=== PATIENT | male | born 1945 | race Caucasian/White ===

== ENCOUNTER 2017-07-09 09:27 | Inpatient (IN) | payer OTHER ==
[~2017-07-09] VITALS: Ht 182.9 cm; Wt 116.0 kg
[2017-07-09] VITALS (18 sets, daily range): BP systolic 135–189; BP diastolic 68–96
[2017-07-09 09:47] LABS: MCH 29.2 PG (29.0-34.0); MCHC 30.6 G/DL (30.0-36.0); MCV 95.4 FL (86-99); MEAN PLAT.VOLUME 10.7 uM^3 (9.0-12.4); PLATELET COUNT 199 K/uL (156-360); RBC DIS.WIDTH-CV 13.1 % (11.8-14.6); RBC DIS.WIDTH-SD 45.1 % (39-53); RED BLOOD COUNT 3.25 M/uL (4.00-5.50); WHITE BLOOD COUNT 8.7 K/uL (4.1-10.2)
[2017-07-09 09:53] LABS: INTER. NORMALIZED RATIO 1.1; PROTHROMBIN TIME 11.7 SEC (10.2-12.9)
[2017-07-09 09:56] LABS: CHLORIDE 103 mEq/L (99-109); MAGNESIUM 1.9 mg/dL (1.3-2.7); POTASSIUM 4.7 mEq/L (3.7-5.4); PTT 30.4 SEC (25-37); SODIUM 144 mEq/L (136-147)
[2017-07-09 09:58] LABS: GLUCOSE 178 mg/dL (70-99)
[2017-07-09 09:59] LABS: ANION GAP 20 MEQ/L (2-14)
[2017-07-09 10:00] LABS: TOTAL BILIRUBIN 0.3 mg/dL (0.0-1.0)
[2017-07-09 10:02] LABS: ALKALINE PHOSPHATASE 66 IU/L (3-129); GFR ESTIMATE (CALCULATED) 20 mL/min/
[2017-07-09 10:03] LABS: UREA NITROGEN (BUN) 37 mg/dL (9-23)
[2017-07-09 10:08] LABS: TROP-I INTERPRETATION NEGATIVE; TROPONIN-I 0.04 ng/mL (0.0-0.30)
[2017-07-09 11:08] LABS: BICARBONATE 27.4 mEq/L (22-26); CARBOXY HGB 0.9 % (0-5); METHEMOGLOBIN 0.8 % (0-1.5); PCO2 67 mm Hg (35-45); PO2 232 mm Hg (80-100)
[2017-07-09 11:08] LABS: BAND NEUTROPHILS 4.4 % (0-8.0); EOSINOPHIL ABS CT 0.2; EOSINOPHILS 2.6 % (0-5.0); INSTRUMENT ABS NEUTROPHIL CT 5.1 K/uL; LYMPHOCYTES 22.8 % (15.0-45.0); METAMYELOCYTES 3.5 %; MYELOCYTES 0.9 %; OVALOCYTES 1+; PLAT.SUFFICIENCY ADEQUATE; POIKILOCYTOSIS 1+; SEG.NEUTROPHILS 64.9 % (46.0-76.0)
[2017-07-09 11:09] LABS: COMMENTS - BLOOD GASES +C; DEVICE 840; FI02 80 %; MECHANICAL RATE 14 resp/min; MODE AC; PEEP 5 CM/H20; SITE RR +A; TIDAL VOLUME 450 ML; TOTAL RESP RATE 18 resp/min; pH 7.22 (7.35-7.45)
[2017-07-09] MEDS ORDERED: PROVENTIL HFA6.7 GM IH (11:35)
[2017-07-09] MEDS ORDERED: PULMICORT FLE180 MCG IH (11:36)
[2017-07-09] MEDS ORDERED: AMARYL1 MG PO (11:37)
[2017-07-09] MEDS ORDERED: LOPRESSOR50 MG PO (11:37)
[2017-07-09] MEDS ORDERED: ASCORBIC ACID500 M1 PO (11:37)
[2017-07-09] MEDS ORDERED: LASIX20 MG PO (11:38)
[2017-07-09] MEDS ORDERED: DUREZOL 0.100 DROP/5 BOTH EYES (11:39)
[2017-07-09] MEDS ORDERED: LO-DOSE ASPIRIN81 M2 PO (11:39)
[2017-07-09] MEDS ORDERED: ILEVRO1.7 ML BOTH EYES (11:40)
[2017-07-09] MEDS ORDERED: BESIVANCE5 ML BOTH EYES (11:40)
[2017-07-09] MEDS ORDERED: CARDURA2 M1 PO (11:41)
[2017-07-09 12:04] LABS: ADD MIUA? YES; BILIRUBIN NEGATIVE; BLOOD NEGATIVE; COLOR YELLOW ((YELLOW)); GLUCOSE (STRIP) 150; KETONES 5; LEUKOCYTES NEGATIVE; NITRITE NEGATIVE; PROTEIN (STRIP) >=500; SPECIFIC GRAVITY 1.019 (1.000-1.030); UROBILINOGEN 0.2 MG/DL (0.2-1.0)
[2017-07-09 12:27] LABS: BACTERIA NONE SEEN /HPF; EPITHELIAL CELLS NONE SEEN /HPF; HYALINE CASTS 0-5 /LPF; MUCUS NONE SEEN /LPF; RED BLOOD CELLS 0-5 /HPF (0-5); WHITE BLOOD CELLS 0-5 /HPF (0-5)
[2017-07-09 13:25] LABS: BASE EXCESS 2.3 mEq/L (-3 to +3); BICARBONATE 30.1 mEq/L (22-26); CARBOXY HGB 1.1 % (0-5); METHEMOGLOBIN 1.5 % (0-1.5); PCO2 64 mm Hg (35-45)
[2017-07-09 13:26] LABS: PO2 56 mm Hg (80-100); SITE RR; pH 7.28 (7.35-7.45)
[2017-07-09 13:27] LABS: COMMENTS - BLOOD GASES C+; DEVICE VENT; FI02 40 %; INSPIRATION TIME 0.9 seconds; MECHANICAL RATE 18 resp/min; MODE AC VC+; PEEP 5 CM/H20; TIDAL VOLUME 450 ML; TOTAL RESP RATE 20 resp/min
[2017-07-09 14:09] LABS: METH RESISTANT S AUREUS PCR NEGATIVE (NEGATIVE)
[2017-07-09 14:10] LABS: PROBE CHECK PASS; SPECIMEN PROCESSING CONTROL PASS
[2017-07-09 14:27] LABS: INTER. NORMALIZED RATIO 1.1; PROTHROMBIN TIME 11.8 SEC (10.2-12.9)
[2017-07-09 14:30] LABS: PTT 23.3 SEC (25-37)
[2017-07-09 16:03] LABS: BASE EXCESS -2.3 mEq/L (-3 to +3); BICARBONATE 26.6 mEq/L (22-26); CARBOXY HGB 1.4 % (0-5); METHEMOGLOBIN 1.3 % (0-1.5); PCO2 68 mm Hg (35-45)
[2017-07-09 16:04] LABS: COMMENTS - BLOOD GASES C+; DEVICE VENT; FI02 50 %; MECHANICAL RATE 22 resp/min; MODE ACVC+; PEEP 5 CM/H20; PO2 77 mm Hg (80-100); SITE RR; TOTAL RESP RATE 23 resp/min
[2017-07-09 17:35] LABS: EOSINOPHIL (%) 0 % (0-5); HEMATOCRIT 31.4 % (38.0-50.0); IMMATURE GRANULOCYTE (%) 0.6 % (0.0-0.7); IMMATURE GRANULOCYTE COUNT 0.1 K/uL; LYMPHOCYTE COUNT 0.3 K/uL (1.0-2.8); MCH 29.7 PG (29.0-34.0); MCHC 31.2 G/DL (30.0-36.0); MCV 95.2 FL (86-99); MEAN PLAT.VOLUME 10.5 uM^3 (9.0-12.4); MONOCYTE (%) 4.3 % (3-12); MONOCYTE COUNT 0.5 K/uL (0-0.8); NEUTROPHIL (%) 92.9 % (45-76); PLATELET COUNT 182 K/uL (156-360); RBC DIS.WIDTH-CV 13.4 % (11.8-14.6); RBC DIS.WIDTH-SD 46.4 % (39-53); WHITE BLOOD COUNT 11.8 K/uL (4.1-10.2)
[2017-07-09 17:52] LABS: ANION GAP 11 MEQ/L (2-14); CHLORIDE 105 MEQ/L (99-109); MAGNESIUM 1.7 mg/dl (1.3-2.7); POTASSIUM 5.3 MEQ/L (3.7-5.4); SAMPLE HEMOLYSIS CHECK 0; SAMPLE ICTERIC CHECK 0; SAMPLE LIPEMIA CHECK 0; SODIUM 141 MEQ/L (136-147)
[2017-07-09 17:58] LABS: GFR ESTIMATE (CALCULATED) 20 mL/min/; GLUCOSE 173 mg/dL (70-99); UREA NITROGEN (BUN) 49 mg/dL (9-23)
[2017-07-09 18:01] LABS: TROP-I INTERPRETATION NEGATIVE; TROPONIN-I 0.19 ng/mL (0.0-0.30)
[2017-07-09 18:02] LABS: TROP-I INTERPRETATION NEGATIVE; TROPONIN-I 0.18 ng/mL (0.0-0.30)
[2017-07-09 18:07] LABS: UR CREATININE CONCENTRATION 184.1 MG/DL
[2017-07-09 18:15] LABS: POINT-OF-CARE METER ID UU14314082
[2017-07-09 18:20] LABS: CREATINE KINASE 441 IU/L (1-294)
[2017-07-09 19:10] LABS: BASE EXCESS -5.4 mEq/L (-3 to +3); BICARBONATE 25.1 mEq/L (22-26); CARBOXY HGB 0.8 % (0-5); METHEMOGLOBIN 1.4 % (0-1.5); PO2 81 mm Hg (80-100)
[2017-07-09 19:11] LABS: COMMENTS - BLOOD GASES A+C+; DEVICE VENT; FI02 50 %; INSPIRATION TIME 0.9 seconds; MECHANICAL RATE 26 resp/min; MODE ACVC+; PCO2 79 mm Hg (35-45); SITE RR; TIDAL VOLUME 500 ML; TOTAL RESP RATE 30 resp/min; pH 7.11 (7.35-7.45)
[2017-07-09 19:12] LABS: PEEP 5 CM/H20
[2017-07-10] VITALS (23 sets, daily range): BP systolic 0–152; BP diastolic 0–70
[2017-07-10 00:05] LABS: BASE EXCESS -2.2 mEq/L (-3 to +3); BICARBONATE 23.7 mEq/L (22-26); CARBOXY HGB 1.2 % (0-5); DEVICE 840; FI02 50 %; INSPIRATION TIME 0.9 seconds; MECHANICAL RATE 26 resp/min; METHEMOGLOBIN 0.9 % (0-1.5); MODE AC/VC+; PCO2 45 mm Hg (35-45); PEEP 5 CM/H20; PO2 69 mm Hg (80-100); SITE RR; TIDAL VOLUME 500 ML; TOTAL RESP RATE 26 resp/min; pH 7.33 (7.35-7.45)
[2017-07-10 00:27] LABS: POINT-OF-CARE METER ID UU13113803
[2017-07-10 00:58] LABS: EOSINOPHIL (%) 0 % (0-5); HEMATOCRIT 29.1 % (38.0-50.0); IMMATURE GRANULOCYTE (%) 0.5 % (0.0-0.7); INSTRUMENT ABS NEUTROPHIL CT 8.2 K/uL; LYMPHOCYTE COUNT 0.3 K/uL (1.0-2.8); MCH 29.6 PG (29.0-34.0); MCHC 31.6 G/DL (30.0-36.0); MCV 93.6 FL (86-99); MEAN PLAT.VOLUME 10.5 uM^3 (9.0-12.4); MONOCYTE (%) 1.9 % (3-12); MONOCYTE COUNT 0.2 K/uL (0-0.8); NEUTROPHIL (%) 93.7 % (45-76); NEUTROPHIL COUNT 8.2 K/uL (1.8-6.4); PLATELET COUNT 154 K/uL (156-360); RBC DIS.WIDTH-CV 13.2 % (11.8-14.6); RBC DIS.WIDTH-SD 44.9 % (39-53); RED BLOOD COUNT 3.11 M/uL (4.00-5.50); WHITE BLOOD COUNT 8.8 K/uL (4.1-10.2)
[2017-07-10 01:09] LABS: INTER. NORMALIZED RATIO 1.2; PROTHROMBIN TIME 12.8 SEC (10.2-12.9)
[2017-07-10 01:13] LABS: CHLORIDE 105 mEq/L (99-109); POTASSIUM 4.7 mEq/L (3.7-5.4); SODIUM 142 mEq/L (136-147)
[2017-07-10 01:14] LABS: MAGNESIUM 1.7 mg/dL (1.3-2.7)
[2017-07-10 01:15] LABS: GLUCOSE 229 mg/dL (70-99)
[2017-07-10 01:17] LABS: ANION GAP 17 MEQ/L (2-14)
[2017-07-10 01:19] LABS: GFR ESTIMATE (CALCULATED) 18 mL/min/
[2017-07-10 01:20] LABS: UREA NITROGEN (BUN) 51 mg/dL (9-23)
[2017-07-10 01:22] LABS: TROP-I INTERPRETATION NEGATIVE; TROPONIN-I 0.17 ng/mL (0.0-0.30)
[2017-07-10 05:28] LABS: pH 7.33 (7.35-7.45)
[2017-07-10 05:29] LABS: BASE EXCESS -2.2 mEq/L (-3 to +3); BICARBONATE 23.7 mEq/L (22-26); CARBOXY HGB 0.5 % (0-5); METHEMOGLOBIN 1.3 % (0-1.5); PCO2 45 mm Hg (35-45); PO2 72 mm Hg (80-100)
[2017-07-10 05:30] LABS: COMMENTS - BLOOD GASES A+C+; DEVICE VENT; SITE RR
[2017-07-10 05:31] LABS: FI02 50 %; INSPIRATION TIME 0.9 seconds; MECHANICAL RATE 26 resp/min; MODE ACVC+; PEEP 5 CM/H20; TIDAL VOLUME 500 ML; TOTAL RESP RATE 26 resp/min
[2017-07-10 05:35] LABS: POINT-OF-CARE METER ID UU14174217
[2017-07-10 06:04] LABS: EOSINOPHIL (%) 0 % (0-5); HEMATOCRIT 35.2 % (38.0-50.0); IMMATURE GRANULOCYTE (%) 0.3 % (0.0-0.7); INSTRUMENT ABS NEUTROPHIL CT 6.7 K/uL; LYMPHOCYTE COUNT 0.4 K/uL (1.0-2.8); MCH 29.5 PG (29.0-34.0); MCV 95.1 FL (86-99); MONOCYTE (%) 2.8 % (3-12); MONOCYTE COUNT 0.2 K/uL (0-0.8); NEUTROPHIL (%) 91.1 % (45-76); NEUTROPHIL COUNT 6.7 K/uL (1.8-6.4); PLATELET COUNT 135 K/uL (156-360); RBC DIS.WIDTH-CV 13.4 % (11.8-14.6); RBC DIS.WIDTH-SD 46.5 % (39-53); WHITE BLOOD COUNT 7.4 K/uL (4.1-10.2)
[2017-07-10 06:18] LABS: INTER. NORMALIZED RATIO 1.1
[2017-07-10 06:25] LABS: TROP-I INTERPRETATION NEGATIVE; TROPONIN-I 0.14 ng/mL (0.0-0.30)
[2017-07-10 06:45] LABS: ANION GAP 16 MEQ/L (2-14); CHLORIDE 104 MEQ/L (99-109); GFR ESTIMATE (CALCULATED) 18 mL/min/; GLUCOSE 244 mg/dL (70-99); MAGNESIUM 1.8 mg/dl (1.3-2.7); POTASSIUM 4.5 MEQ/L (3.7-5.4); SAMPLE HEMOLYSIS CHECK 0; SAMPLE ICTERIC CHECK 0; SAMPLE LIPEMIA CHECK 0; SODIUM 142 MEQ/L (136-147); UREA NITROGEN (BUN) 54 mg/dL (9-23)
[2017-07-10 12:01] LABS: POINT-OF-CARE METER ID UU14174217
[2017-07-10 12:03] LABS: BASE EXCESS 1.9 mEq/L (-3 to +3); BICARBONATE 25.1 mEq/L (22-26); CARBOXY HGB 0.6 % (0-5); METHEMOGLOBIN 0.9 % (0-1.5); PO2 73 mm Hg (80-100)
[2017-07-10 12:04] LABS: COMMENTS - BLOOD GASES C+; DEVICE VENT; FI02 50 %; INSPIRATION TIME 0.9 seconds; MECHANICAL RATE 26 resp/min; MODE AC VC+; PCO2 33 mm Hg (35-45); SITE RR; TOTAL RESP RATE 26 resp/min; pH 7.49 (7.35-7.45)
[2017-07-10 12:05] LABS: PEEP 5 CM/H20; TIDAL VOLUME 500 ML
[2017-07-10 12:15] LABS: EOSINOPHIL (%) 0 % (0-5); IMMATURE GRANULOCYTE (%) 0.5 % (0.0-0.7); INSTRUMENT ABS NEUTROPHIL CT 5.6 K/uL; LYMPHOCYTE COUNT 0.5 K/uL (1.0-2.8); MCH 29.8 PG (29.0-34.0); MCHC 32.5 G/DL (30.0-36.0); MCV 91.8 FL (86-99); MEAN PLAT.VOLUME 11.2 uM^3 (9.0-12.4); MONOCYTE (%) 2.7 % (3-12); MONOCYTE COUNT 0.2 K/uL (0-0.8); NEUTROPHIL (%) 89.6 % (45-76); NEUTROPHIL COUNT 5.6 K/uL (1.8-6.4); PLATELET COUNT 159 K/uL (156-360); RBC DIS.WIDTH-CV 13.5 % (11.8-14.6); RBC DIS.WIDTH-SD 44.7 % (39-53); RED BLOOD COUNT 3.05 M/uL (4.00-5.50); WHITE BLOOD COUNT 6.2 K/uL (4.1-10.2)
[2017-07-10 12:26] LABS: TROP-I INTERPRETATION NEGATIVE; TROPONIN-I 0.12 ng/mL (0.0-0.30)
[2017-07-10 12:28] LABS: ANION GAP 15 MEQ/L (2-14); CHLORIDE 103 MEQ/L (99-109); POTASSIUM 4.3 MEQ/L (3.7-5.4); SAMPLE HEMOLYSIS CHECK 0; SAMPLE ICTERIC CHECK 0; SAMPLE LIPEMIA CHECK 0; SODIUM 144 MEQ/L (136-147)
[2017-07-10 12:33] LABS: GFR ESTIMATE (CALCULATED) 18 mL/min/; GLUCOSE 228 mg/dL (70-99); UREA NITROGEN (BUN) 57 mg/dL (9-23)
[2017-07-10 12:47] LABS: INTER. NORMALIZED RATIO 1.1
[2017-07-10] MEDS ORDERED: PROVENTIL,2.5 MG/3 M IH (13:26)
[2017-07-10 18:27] LABS: POINT-OF-CARE METER ID UU14174217
[2017-07-10 18:50] LABS: EOSINOPHIL (%) 0 % (0-5); IMMATURE GRANULOCYTE (%) 0.4 % (0.0-0.7); INSTRUMENT ABS NEUTROPHIL CT 9.1 K/uL; LYMPHOCYTE COUNT 0.5 K/uL (1.0-2.8); MCH 29.1 PG (29.0-34.0); MCV 90.9 FL (86-99); MEAN PLAT.VOLUME 10.7 uM^3 (9.0-12.4); MONOCYTE (%) 3.9 % (3-12); MONOCYTE COUNT 0.4 K/uL (0-0.8); NEUTROPHIL (%) 90.5 % (45-76); NEUTROPHIL COUNT 9.1 K/uL (1.8-6.4); PLATELET COUNT 161 K/uL (156-360); RBC DIS.WIDTH-CV 13.2 % (11.8-14.6); WHITE BLOOD COUNT 10.1 K/uL (4.1-10.2)
[2017-07-10 18:50] LABS: TROP-I INTERPRETATION NEGATIVE
[2017-07-10 19:00] LABS: INTER. NORMALIZED RATIO 1.1; PROTHROMBIN TIME 12.5 SEC (10.2-12.9)
[2017-07-10 19:09] LABS: ANION GAP 15 MEQ/L (2-14); CHLORIDE 101 MEQ/L (99-109); POTASSIUM 4.1 MEQ/L (3.7-5.4); SAMPLE HEMOLYSIS CHECK 0; SAMPLE ICTERIC CHECK 0; SAMPLE LIPEMIA CHECK 0; SODIUM 141 MEQ/L (136-147)
[2017-07-10 19:14] LABS: GFR ESTIMATE (CALCULATED) 15 mL/min/; GLUCOSE 217 mg/dL (70-99); MAGNESIUM 1.8 mg/dl (1.3-2.7); UREA NITROGEN (BUN) 59 mg/dL (9-23)
[2017-07-10 19:47] LABS: BICARBONATE 29.9 mEq/L (22-26); CARBOXY HGB 0.8 % (0-5); pH 7.43 (7.35-7.45)
[2017-07-10 19:48] LABS: PCO2 45 mm Hg (35-45); PO2 50 mm Hg (80-100); SITE RR
[2017-07-10 19:49] LABS: COMMENTS - BLOOD GASES C+; DEVICE VENT; FI02 40 %; INSPIRATION TIME 0.9 seconds; MECHANICAL RATE 26 resp/min; MODE AC/VC+; PEEP 5 CM/H20; TIDAL VOLUME 500 ML; TOTAL RESP RATE 26 resp/min
[2017-07-10 23:29] LABS: POINT-OF-CARE METER ID UU14174217
[2017-07-11] VITALS (21 sets, daily range): BP systolic 120–173; BP diastolic 52–94
[2017-07-11 00:39] LABS: EOSINOPHIL (%) 0 % (0-5); HEMATOCRIT 32.8 % (38.0-50.0); IMMATURE GRANULOCYTE (%) 0.4 % (0.0-0.7); IMMATURE GRANULOCYTE COUNT 0.1 K/uL; INSTRUMENT ABS NEUTROPHIL CT 12.9 K/uL; LYMPHOCYTE COUNT 0.5 K/uL (1.0-2.8); MCH 29.1 PG (29.0-34.0); MCHC 32.9 G/DL (30.0-36.0); MCV 88.4 FL (86-99); MEAN PLAT.VOLUME 11.2 uM^3 (9.0-12.4); MONOCYTE (%) 3.8 % (3-12); MONOCYTE COUNT 0.5 K/uL (0-0.8); NEUTROPHIL (%) 92.1 % (45-76); NEUTROPHIL COUNT 12.9 K/uL (1.8-6.4); PLATELET COUNT 151 K/uL (156-360); RBC DIS.WIDTH-CV 13.4 % (11.8-14.6); RBC DIS.WIDTH-SD 43.2 % (39-53); RED BLOOD COUNT 3.71 M/uL (4.00-5.50)
[2017-07-11 00:43] LABS: INTER. NORMALIZED RATIO 1.1
[2017-07-11 01:10] LABS: TROP-I INTERPRETATION NEGATIVE; TROPONIN-I 0.09 ng/mL (0.0-0.30)
[2017-07-11 01:15] LABS: BASE EXCESS 6.6 mEq/L (-3 to +3); BICARBONATE 31.3 mEq/L (22-26); CARBOXY HGB 0.6 % (0-5); COMMENTS - BLOOD GASES C+; METHEMOGLOBIN 1.3 % (0-1.5); PCO2 45 mm Hg (35-45); PO2 86 mm Hg (80-100); SITE RR; pH 7.45 (7.35-7.45)
[2017-07-11 01:16] LABS: DEVICE VENT; FI02 60 %; INSPIRATION TIME 0.9 seconds; MECHANICAL RATE 26 resp/min; MODE AC/VC+; PEEP 5 CM/H20; TIDAL VOLUME 500 ML; TOTAL RESP RATE 26 resp/min
[2017-07-11 02:49] LABS: CHLORIDE 102 mEq/L (99-109); SODIUM 141 mEq/L (136-147)
[2017-07-11 02:51] LABS: GLUCOSE 141 mg/dL (70-99)
[2017-07-11 02:52] LABS: ANION GAP 15 MEQ/L (2-14)
[2017-07-11 02:55] LABS: GFR ESTIMATE (CALCULATED) 14 mL/min/; UREA NITROGEN (BUN) 59 mg/dL (9-23)
[2017-07-11 03:06] LABS: MAGNESIUM 2.2 mg/dL (1.3-2.7); POTASSIUM 5.1 mEq/L (3.7-5.4)
[2017-07-11 05:31] LABS: POINT-OF-CARE METER ID UU14162636
[2017-07-11 06:14] LABS: EOSINOPHIL (%) 0 % (0-5); HEMATOCRIT 25.5 % (38.0-50.0); IMMATURE GRANULOCYTE (%) 0.5 % (0.0-0.7); IMMATURE GRANULOCYTE COUNT 0.1 K/uL; INSTRUMENT ABS NEUTROPHIL CT 13.3 K/uL; LYMPHOCYTE COUNT 0.4 K/uL (1.0-2.8); MCH 30.1 PG (29.0-34.0); MCHC 33.7 G/DL (30.0-36.0); MCV 89.2 FL (86-99); MEAN PLAT.VOLUME 11.3 uM^3 (9.0-12.4); MONOCYTE (%) 3.2 % (3-12); MONOCYTE COUNT 0.5 K/uL (0-0.8); NEUTROPHIL (%) 93.6 % (45-76); NEUTROPHIL COUNT 13.3 K/uL (1.8-6.4); PLATELET COUNT 180 K/uL (156-360); RBC DIS.WIDTH-CV 13.4 % (11.8-14.6); RBC DIS.WIDTH-SD 43.4 % (39-53); WHITE BLOOD COUNT 14.2 K/uL (4.1-10.2)
[2017-07-11 06:15] LABS: RED BLOOD COUNT 2.86 M/uL (4.00-5.50)
[2017-07-11 06:18] LABS: INTER. NORMALIZED RATIO 1.1; PROTHROMBIN TIME 12.3 SEC (10.2-12.9)
[2017-07-11 06:28] LABS: ALKALINE PHOSPHATASE 50 IU/L (3-129); ANION GAP 13 MEQ/L (2-14); CHLORIDE 99 MEQ/L (99-109); DIRECT BILIRUBIN 0.1 mg/dL (0.0-0.3); GFR ESTIMATE (CALCULATED) 14 mL/min/; GLUCOSE 172 mg/dL (70-99); MAGNESIUM 1.8 mg/dl (1.3-2.7); SAMPLE HEMOLYSIS CHECK 0; SAMPLE ICTERIC CHECK 0; SAMPLE LIPEMIA CHECK 0; SODIUM 139 MEQ/L (136-147); TOTAL BILIRUBIN 0.3 MG/DL (0.0-1.0); UREA NITROGEN (BUN) 61 mg/dL (9-23)
[2017-07-11 06:30] LABS: TROP-I INTERPRETATION NEGATIVE; TROPONIN-I 0.11 ng/mL (0.0-0.30)
[2017-07-11 07:05] LABS: VANCOMYCIN, TROUGH 13.5 MCG/ML (10-20)
[2017-07-11 10:12] LABS: BASE EXCESS 8.3 mEq/L (-3 to +3); BICARBONATE 31.8 mEq/L (22-26); CARBOXY HGB 0.4 % (0-5); METHEMOGLOBIN 1.4 % (0-1.5); PO2 69 mm Hg (80-100); pH 7.52 (7.35-7.45)
[2017-07-11 10:13] LABS: COMMENTS - BLOOD GASES NA C+; DEVICE VENT; FI02 50 %; MECHANICAL RATE 26 resp/min; MODE ACVC+; PCO2 39 mm Hg (35-45); PEEP 5 CM/H20; SITE RR; TIDAL VOLUME 500 ML; TOTAL RESP RATE 26 resp/min
[2017-07-11 13:18] LABS: POINT-OF-CARE METER ID UU14162636
[2017-07-11 18:34] LABS: POINT-OF-CARE METER ID UU14174217
[2017-07-12] VITALS (8 sets, daily range): BP systolic 100–161; BP diastolic 58–84
[2017-07-12 00:31] LABS: POINT-OF-CARE METER ID UU14174217
[2017-07-12 05:41] LABS: POINT-OF-CARE METER ID UU14208751
[2017-07-12 06:12] LABS: ANION GAP 11 MEQ/L (2-14); CHLORIDE 101 MEQ/L (99-109); GFR ESTIMATE (CALCULATED) 11 mL/min/; GLUCOSE 120 mg/dL (70-99); MAGNESIUM 1.9 mg/dl (1.3-2.7); POTASSIUM 4.8 MEQ/L (3.7-5.4); SAMPLE HEMOLYSIS CHECK 0; SAMPLE ICTERIC CHECK 0; SAMPLE LIPEMIA CHECK 0; SODIUM 141 MEQ/L (136-147); UREA NITROGEN (BUN) 73 mg/dL (9-23)
[2017-07-17 12:00] LABS: CREATININE 3.1 mg/dL (0.6-1.3); POTASSIUM 4.6 mEq/L (3.7-5.4)
== END 2017-07-12 15:40 | DRG 308 ==
LOC: EME 09:27 → EDOF 11:26 → 4WEST 11:26 → ENRESERV 11:31 → ENRESERVTM 11:33 → ENRESERVDT 11:33 → 4WEST 12:40 → ENRESERV 07-12 14:12 → CANRESERV 07-12 14:12 → 4WEST 07-12 15:40
PROVIDERS: Emergency Medicine; Internal Medicine; Internal Medicine Pulmonary Disease; Specialist
DX: I49.01 Ventricular fibrillation (principal); J69.0 Pneumonitis due to inhalation of food and vomit; J96.22 Acute and chronic respiratory failure with hypercapnia; J44.1 Chronic obstructive pulmonary disease with (acute) exacerbation; J96.21 Acute and chronic respiratory failure with hypoxia; I46.9 Cardiac arrest, cause unspecified; Z66 Do not resuscitate; Z51.5 Encounter for palliative care; E87.2 Acidosis; J98.11 Atelectasis; N17.0 Acute kidney failure with tubular necrosis; N18.3 Chronic kidney disease, stage 3 (moderate); G93.1 Anoxic brain damage, not elsewhere classified; E66.9 Obesity, unspecified; Z68.34 Body mass index [BMI] 34.0-34.9, adult; E11.22 Type 2 diabetes mellitus with diabetic chronic kidney disease; Z99.81 Dependence on supplemental oxygen; I13.0 Hypertensive heart and chronic kidney disease with heart failure and stage 1 through stage 4 chronic kidney disease, or unspecified chronic kidney disease; I50.9 Heart failure, unspecified
CPT/HCPCS: 36600; 70450; 71010; 71250; 76770; 80047; 80048; 80048 91; 80053; 80076; 80202; 81003; 82330; 82436; 82550 91; 82570; 82803; 82948; 83605; 83735; 84100; 84156; 84300; 84484; 84540; 85025; 85025 91; 85610; 85730; 87040; 87070; 87086; 87205; 87641; 93005; 93306; 93970; 94002; 94003; 94640; 94640 76; 94760; 95819; 99202; 99281; 99285; C1751; J0282; J0610; J0692; J1644; J1815; J1940; J2060; J2250; J2543; J2704; J2930; J3370; J7030; J7050; J7070; J7120; S0028